=== PATIENT | male | born 1970 | race African-American/Black ===

== ENCOUNTER 2020-05-08 11:02 | Emergency (ER) | payer BC ==
[~2020-05-08] VITALS: Ht 180.3 cm; Wt 109.1 kg
[2020-05-08 11:07] VITALS: Ht 180.3 cm; Wt 109.1 kg
[2020-05-08 11:30] LABS: BASOPHILS 0.2 % (0-2); EOSINOPHILS 0.8 % (0-7); HEMATOCRIT 48.3 % (42.0-54.0); HEMOGLOBIN 16.2 g/dL (13.5-17.5); IMMATURE GRANULOCYTES 0.2 % (0-5); LYMPHOCYTES 38.1 % (15-50); MCH 29.1 pg (26.0-34.0); MCHC 33.5 g/dL (31.0-37.0); MCV 86.9 fL (80.0-100.0); MEAN PLATELET VOLUME 9.3 fL (7.4-10.4); MONOCYTES 8.1 % (2-11); NEUTROPHILS 52.6 % (40-80); PLATELET COUNT 205 10x3/uL (130-400); RBC 5.56 10x6/uL (4.20-6.10); RDW 13.7 % (11.5-14.5); WBC 6.1 10x3/uL (4.8-10.8)
[2020-05-08 11:36] LABS: CALC OSMOLALITY 279 mosm/kg (275-300); CALCIUM 9.4 mg/dL (8.5-10.1); CHLORIDE - SERUM 105 mmol/L (98-107); CREATININE - SERUM 1.3 mg/dL (0.6-1.3); GLUCOSE 98 mg/dL (74-106); POTASSIUM - SERUM 4.2 mmol/L (3.5-5.1); SODIUM 139 mmol/L (136-145); UREA NITROGEN 17 mg/dL (7-18); eGFR NON AFRICAN AMERICAN 62 mL/min (90-120)
[2020-05-08 11:46] LABS: ALKALINE PHOSPHATASE 72 U/L (30-120); ALT (SGPT) 31 U/L (10-68); AMYLASE - SERUM 83 U/L (25-115); LIPASE 99 U/L (73-393); PROTEIN - SERUM 7.8 g/dL (6.4-8.2); TROPONIN-I < 0.017 ng/mL (0.000-0.060)
[2020-05-08 13:12] LABS: BILIRUBIN NEGATIVE (NEGATIVE); GLUCOSE NEGATIVE (NEGATIVE); KETONE NEGATIVE (NEGATIVE); NITRITE NEGATIVE (NEGATIVE); SPECIFIC GRAVITY 1.015 (1.005-1.020); UROBILINOGEN NORMAL (NORMAL)
[2020-05-08] MEDS ORDERED: CLINDAMYCIN HC300 MG PO (14:07)
[2020-05-08 14:23] VITALS: BP 159/95
== END 2020-05-08 14:25 | disposition home or self-care (01) ==
LOC: D.ER 11:02
PROVIDERS: Family Medicine
DX: K43.9 Ventral hernia without obstruction or gangrene (principal); L03.311 Cellulitis of abdominal wall

== ENCOUNTER 2020-07-17 09:40 | Emergency (ER) | payer BC ==
[~2020-07-17] VITALS: Ht 180.3 cm; Wt 113.6 kg
[~2020-07-17 09:40] MED LIST: CLINDAMYCIN HC300 MG PO
[2020-07-17 09:57] VITALS: BP 145/85; Ht 180.3 cm; Wt 113.6 kg
== END 2020-07-17 15:50 | disposition left against medical advice (07) ==
LOC: D.ER 09:40
DX: M54.9 Dorsalgia, unspecified (principal)